=== PATIENT | male | born 1955 | race Caucasian/White ===

== ENCOUNTER 2016-07-05 01:16 | Inpatient (IN) | payer OTHER ==
--- NOTE | 2016-06-30 16:18 | History & Physical Pre-Op ---
General Information and HPI MD Statement: I have seen and personally examined MARY ALICE HOWELL and documented this H&P. The patient is a 60 year old M who presented with a patient stated chief complaint of [left sided neck pain radiating down into his shoulder and his arm on the right and the occipital and temporal regions on the left Pain is worse with extension of his neck bending towards the left shoulder]. Source of Information: patient Exam Limitations: no limitations History of Present Illness: 61-year-old right-handed gentleman with symptoms since late 2014 early 2015 as mentioned above. Things are worse with activity coughing sneezing or walking. He complains of numbness and tingling behind his left eye and cheek Allergies/Medications Allergies: Coded Allergies: No Known Allergies (06/28/16) Home Med list Atorvastatin Calcium (Lipitor) 20 MG TABLET 1 TAB PO DAILY CHOLESTEROL ( Reported) Multivitamin (Multiple Vitamins) 1 EACH TABLET 1 TAB PO DAILY SUPPLEMENT ( Reported) Tamsulosin HCl (Flomax) 0.4 MG CAP.ER.24H 1 CAP PO DAILY PROSTATE (Reported) Compliance With Home Meds: GOOD Past History Medical History Blood Transfusion Hx: No Type of Reaction: none Neurological: NONE EENT: NONE Cardiovascular: NONE Respiratory: NONE Gastrointestinal: colitis Hepatic: NONE Renal: benign prost hyperplasia Musculoskeletal: spinal stenosis Psychiatric: NONE Endocrine: NONE Blood Disorders: NONE Cancer(s): NONE 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 Cervical fusion C4 5. Past Family/Social History Psychosocial History Past Psychosocial History Unobtainable at this time Where Do You Live? Home Who Do You Live With? uncertain Services at Home None Primary Language: Finnish Smoking Status: Never Smoked ETOH Use: occasional use Illicit Drug Use: denies illicit drug use Living Will? unknown Power of Cytometry Technologist/HCP? unknown Name of POA/HCP: unknown Other Social History: Father with prostate disease mother with osteoporosis Functional Ability ADLs Independent: dressing, eating, toileting, bathing. Ambulation: independent IADLs Independent: shopping. Employment History Employment: Employed Profession/Employer: [employer]. Review of Systems Review of Systems: Neck and shoulder and arm pain as above Review of Systems Constitutional: Denies: no symptoms. EENTM: Denies: visual changes. Cardiovascular: Denies: no symptoms. Respiratory: Denies: no symptoms. GI: Reports: abdominal pain. Genitourinary: Reports: nocturia. Musculoskeletal: Reports: see HPI. Skin: Denies: no symptoms. Neurological/Psychological: Reports: headache, tingling, other (neck discomfort as described). Hematologic/Endocrine: Denies: no symptoms. Immunologic/Allergic: Denies: no symptoms. All Other Systems: Reviewed and Negative Colonoscopy Testing Status: Unknown if test ever done Comments His main symptomatology is as described above Exam & Diagnostic Data Last 24 Hrs of Vital Signs/I&O He has limitation of forward bending of his neck. He has a Spurling sign to the left. He has no axial loading side. Physical Exam: HEENT limitation of forward bending of his neck. Spurling sign to the left. No axial loading sign. Neurologic awake alert oriented. Motor strength 5 over 5 in all groups. Trace present reflexes of biceps brachioradialis and triceps. He has no increased finger flexors or evidence of myelopathy or lower extremities. He has decreased sensation C4 and C5 distribution on his left arm in a C6 distribution bilaterally Physical Exam General Appearance Alert, Oriented X3 Skin No Rashes, scars from previous surgery HEENT see above note Neck arked limitation of range of motion Lymphatic Cervical nl Cardiovascular Regular Rate Lungs Clear to Auscultation Abdomen Soft Neurological Normal Gait, Normal Speech, Strength at 5/5 X4 Ext, decreased sensation in C4 and C5 on the left and C6 bilateral Extremities No Clubbing Vascular Normal Pulses Breasts noncontributory Reproductive (MALE) Normal male genitalia Rectal deferred to primary care Last 24 Hrs of Labs/Ian: Attending CBCs Diagnostic Data ITS Data Unobtainable at this time EKG Results C primary care note CXR Results CC primary care note Other Results MRI demonstrates fusions at C4 5 and 467. Heart disc formation at C3 4. Acute kyphosis at C5 6 plus grade 1 spondylolisthesis. He has findings at C7-T1. Assessment/Plan Assessment/Plan: #1 cervical radiculopathy #2 C5 6 spondylosis #3 post anterior cervical fusion #4 benign prosthetic hypertrophy As Ranked By This Provider Problem List: 1. Cervical radiculopathy at C5 Attending MD Review Statement Attending Statement Attending MD Statement: discussed with family, reviewed images Attending Assessment/Plan: Patient requiring anterior cervical discectomy and fusion at C5 6
[~2016-07-05] VITALS: Ht 177.8 cm; Wt 92.1 kg
[~2016-07-05 01:16] MED LIST: ATORVASTATIN CA20 MG PO; FLOMAX0.4 M1 PO; MULTIVITAMIN1 TAB PO; RAPAFLO8 MG PO
--- NOTE | 2016-07-05 15:08 | Operative Report ---
Operative/Inv Procedure Report Surgery Date: 07/05/16 Name of Procedure: #1 removal of hardware C 45, C6 7 #2 anterior cervical microscopic discectomy C5 6 #3 preparation of space for fusion C5 6 Pre-Operative Diagnosis: #1 cervical radiculopathy or lateral #2 instability C5 6 #3 rule out pseudoarthrosis C4 5 Post-Operative Diagnosis: #1 cervical radiculopathy C5 6 #2 instability C5 6 Estimated Blood Loss: 50ml to 100ml Surgeon/Clinical Admissions Manager: JACLYN VALIENTE,CHRISSY Nelson (cosurgeon) CALI GODFREY MD,[facility] Anesthesia: general endotracheal tube Monitors: Neurophysiology monitoring throughout the case. Neuro alert IV Fluids: D5 normal saline Implants: Kerlink Urine Output: 100 mL Drains: One [place] Specimens: HNP C5 6 Microbiology: None Tourniquet: None Complications: None Condition: Stable Operative Indication: 60-year-old male with excruciating right leg pain in addition bilateral arm pain left worse than right in addition low back pain. Patient failed conservative measures. Patient had previous fusion at C4 5 as well as C6 7. The fusion at C6 7 was radiologically evidently fused C4 5 was a little bit more open to question Indication for surgery alternative risks and possible complications including disfigurement and paralysis were discussed at length with the patient elected to have surgery performed O guarantees given all questions answered Operative/Procedure Note Note: Patient was intubated supine and kept supine. His head was extended over a rolled sheet. His head was in a traction device of the Holter type and sustained 15 pounds of weight. The procedure was done under continuous neurophysiological monitoring provided for by neuro alert. The patient received 2 g of intravenous antibiotics and 10 mg of Decadron prior to starting the case Neck was prepped and draped in the usual sterile manner infiltrated with Xylocaine and epinephrine. Sharp dissection was carried down to the platysma which was then dissected in the direction of its fibers and sharp dissection was carried down to the anterior fascia of the cervical region which was thickened by significant scarring. Tedious dissection allowed us finally to identify the previous plates at C6 7 and from that point on removing old scar allowed us to identify both the C5 6 disc space as well as the C4 5 plate Tedious removal of the plate at C6 7 followed a relatively uncomplicated removal of plate at C4 5. Screws were all accounted for. A minimal amount of bleeding from the screw holes required use of bone wax A needle was placed in the C5 6 space and a film confirmed that we were indeed at that point after dissecting out the longus coli muscles bilaterally the Trimline self-retaining retractor was placed horizontally and vertically following which under the next the illumination and magnification provided for by the Leica microscope the annulus was incised with 11 blade the anterior osteophyte was removed with the 3 mm Kerrison disc material was removed with straight and up-biting pituitaries and micro-grasper. A intervertebral body teacher drama was then placed and widened in the posterior osteophytes were removed after opening the posterior longitudinal ligament with 1 mm Kerrison once the ligament had been widely opened and the osteophytes removed with 2 mm Kerrison attention was directed to the foramen a and they were opened with 2 mm Kerrisons more pronounced on the left than on the right once free passage of nerve root of nerve root of nerve hook and removed Dissector Were Performed the Microscope Was Then Removed and Using First Angled Curettes and Then the High-Speed Drill to Remove Anterior Osteophytic Bars and Then Using Rasps the Space at C5 6 Was Readied for Fusion and Once Preparation Was Accomplished Microscope Having Been Removed the Procedure Was Turned over to the Orthopedic Service for Fusion of This We Dictated Separately. Sponges and Count Were Correct or No Trouble Complications Inspection of the C4 5 Fusion Mass Was Accomplished and This Was Found to Be Satisfactorily Fused Findings: #1 satisfactory fusion L4 5 #2 foraminal entrapment from osteophytic over growth at C5 6 Discharge Disposition: PACU Additional Comments: Slight improvement and motor potentials which had been remarkably low prior to beginning the case by the end of the case CC: JACLYN VALIENTE,CHRISSY Nelson
[2016-07-05 16:45] VITALS: BP 182/110
--- NOTE | 2016-07-05 17:43 | NUR ---
PATIENT B/P 180/110 AT 1700. HR 88, RR 20, 97% ON 2L NC. PT C/O 6/10 PAIN OVER HIS RIGHT EAR AND A HEADACHE. NO OTHER COMPLAINTS. SURGICAL YASIR PAGED. AT 1715 YASIR GONSALEZ AWARE AND PATIENT TO BE GIVEN DIALUDID. TO RECHECK B/P IN 1/2 HR. PATIENT GIVEN DIALUDID AT 1720. B/P AT 1745 WAS 180/110. PT STILL C/O SAME PAIN. YASIR GONSALEZ LESLY IN TO ASSESS PATIENT. AWAAITING FURTHER ORDERS. WILL MONITOR.
--- NOTE | 2016-07-05 17:44 | PN- Orthopedic ---
Subjective Subjective: Post Op Note s/p removal of hardware C4-C7. ACDF C5-C6 Patient c/o a headache which is 9/10 and located on the right side of his head. He states he sometimes gets headaches but not normally this bad. Incisional neck pain is tolerable at this time. Denies n/v. Denies numbness/tingling in extremities. Denies CP/SOB. Objective Vital Signs and I&Os Vital Signs Date Time Temp Pulse Resp B/P Pulse O2 O2 Flow FiO2 Ox Delivery Rate 07/05 1745 180/110 07/05 1645 98.1 88 20 182/110 97 Nasal 2.0L Cannula Physical Exam: General: NAD, comfortable, A&Ox3 Neuro: CNII-XII grossly intact. BUE Head Of [employer]s strength 5/5. B/L plantarflexion and dorsiflexion 5/5. Neck: C collar in place. Dressing with one small spot, otherwise c/d/i. PABLO drain x1 in place with no output. Chest: CTAB, no wheezes, no rales. Heart S1S2 normal. Abdomen: soft, nontender, nondistended. Ext: No calve swelling/TTP, neurovascularly intact bilateral lower extremities Current Medications: Current Medications Sig/Rm Start time Last Medication Dose Route Stop Time Status Admin Acetaminophen 1,000 MG Q6P PRN 07/05 1800 AC N/A 1 UNIT IV Cefazolin Sodium 2 GM Q8H 07/05 2000 AC N/A 1 UNIT IV 07/06 1959 Cefazolin Sodium 2 GM Q8H 07/05 1800 DC N/A 1 UNIT IV 07/06 1759 Cefazolin Sodium 2,000 MG ONCE 07/05 0000 DC IV 07/05 2359 Dextrose/Sodium 1,000 ML .[id number] 07/05 1715 AC 07/05 Chloride IV 1753 Diazepam 5 MG Q8P PRN 07/05 171 AC PO Docusate Sodium 100 MG DAILY NEEDED PRN 07/05 171 AC PO Hydromorphone HCl 0.5 MG Q3P PRN 07/05 1715 AC 07/05 IV 1722 Ondansetron HCl 4 MG Q6P PRN 07/05 1715 AC IV Oxycodone HCl 5 MG Q4P PRN 07/05 1800 AC PO Oxycodone HCl 10 MG Q4P PRN 07/05 1800 AC PO Oxycodone/ 1 TAB Q4P PRN 07/05 1715 DC Acetaminophen PO Oxycodone/ 2 TAB Q4P PRN 07/05 1715 DC Acetaminophen PO Polyethylene Glycol 17 GM DAILY NEEDED PRN 07/05 1715 AC PO Assessment/Plan Assessment/Plan 60yo M POD#0 s/p removal of hardware C4-C7. ACDF C5-C6. Hypertensive. - Start IV Ofirmev - Change percocet to roxicodone - PRN zofran - PRN valium - IVF - Monitor BP - I/O's - C Collar at all times - PABLO drain to bulb suction - OOB when pain improved with assist first time - Keep dressing in place - IV Ancef while drain in place Core Measures/Miscellaneous Venous Thromboembolism VTE Risk Factors: Age > 40, Surgery VTE Contraindications: Active Bleeding (surgical contraindication) VTE Diagnosis: No Beta Jose Is Beta Jose a Home Med? No Antibiotics Is Patient on Antibiotics? Yes If Yes: prophylaxis
[2016-07-05 17:45] VITALS: BP 180/110
--- NOTE | 2016-07-05 17:54 | NUR ---
WALLACE COOLEY AT BEDSIDE TO ASSES PATIENT. PER YASIR, HANG IV TYLENOL AND HE WILL ADJUST PAIN REGIMEN. NO FURTHER ORDERS FOR B/P AT THIS TIME. WILL CONTINUE TO MONITOR.
--- NOTE | 2016-07-05 18:03 | Admission Core Measures ---
Admission Meds I reviewed the following Meds: Current Medications Sig/Rm Start time Last Medication Dose Stop Time Status Admin Atorvastatin Calcium 20 MG DAILY 07/06 1000 UNVr (Lipitor) Cefazolin Sodium 2 GM Q8H 07/06 1999 AC (Kefzol) 07/06 1958 N/A 1 UNIT (No Carrier) Diazepam 5 MG Q8P PRN 07/05 171 AC (Valium) Docusate Sodium 100 MG DAILY NEEDED PRN 07/05 171 AC (Colace) Ondansetron HCl 4 MG Q6P PRN 07/05 171 AC (Zofran) Oxycodone HCl 5 MG Q4P PRN 07/05 1800 AC (Roxicodone) Oxycodone HCl 10 MG Q4P PRN 07/05 1800 AC (Roxicodone) Polyethylene Glycol 17 GM DAILY NEEDED PRN 07/05 171 AC (Miralax) Tamsulosin HCl 0.4 MG DAILY 07/06 1000 UNVr (Flomax) Acute Coronary Syndrome Inclusion Criteria ACS Diagnosis No Inpatient Core Measures LDL Reminder: If No, please order W/I first 24hr of stay Congestive Heart Failure Inclusion Criteria CHF Diagnosis No Cerebrovascular accident Inclusion Criteria CVA/TIA Diagnosis No Inpatient Core Measures Bedside Swallow Eval Reminder: If BSE failed, place ST order Antithrombotic Reminder: Order Antithrombotic Medication by end of day 2 Antithrombotic Reminder: Document Reason Antithrombotic Not ordered by end of day 2 AFIB/Flutter Reminder: If Present, add to problem list AFIB/Flutter Reminder: Order Anticoag Medication for pts with AFIB/Flutter Atherosclerosis Reminder: If Present, add to problem list LDL Reminder: If No, please order W/I first 24hr of stay PT Order Reminder: If No, please order Venous thromboembolism Inpatient Core Measures VTE Risk Factors: Age > 40, Surgery No [facility] VTE prophylaxis d/t No contraindications No VTE Pharm Prophylaxis d/t No contraindications Inclusion Criteria - Per Current guidelines, there needs to be overlap - treatment for the first 5 days of Warfarin therapy. - Parenteral Anticoagulation (IV or SC) needs to be - given along with Warfarin therapy. VTE Diagnosis No VTE Type NONE VTE Confirmed by (Test) NONE Problem List As ranked by this Provider includes Assessment & Plan 1. Cervical radiculopathy at C5 HOME MEDS Home Med List Atorvastatin Calcium (Lipitor) 20 MG TABLET 1 TAB PO DAILY CHOLESTEROL ( Reported) Multivitamin (Multiple Vitamins) 1 EACH TABLET 1 TAB PO DAILY SUPPLEMENT ( Reported) Tamsulosin HCl (Flomax) 0.4 MG CAP.ER.24H 1 CAP PO DAILY PROSTATE (Reported)
[2016-07-05 18:45] VITALS: BP 180/110
--- NOTE | 2016-07-05 19:00 | NUR ---
RECHECKED B/P AT 1845 AND STILL 180/110, PULSE 94, THIS RN CALLED SURGICAL PA, PER SURGICAL PA IGNACIO TELEPHONE ORDER, GIVE 25 MG METOPROLOL PO AND 1 MG ATIVAN IV, TELEPHONE ORDER READ BACK AND VERIFIED BY THIS RN, FAXED TO PHARMACY, WILL CONTINUE TO MONITOR
[2016-07-05 20:45] VITALS: BP 150/94
--- NOTE | 2016-07-05 20:50 | NUR ---
AT THIS TIME, PT CALLED THIS RN INTO ROOM AND COMPLAINED OF CHEST PAIN. THIS RN PAGED SURGICAL PA, SURG PA WAS IN SURGERY PER RESPONDER TO MY PAGE. THIS RN WAS TOLD TO CALL FOR A MEDICAL CONSULT FROM THE [facility] AND HAVE HIM COME SEE PT. THIS RN CALLED [facility] AND WAS TOLD "CALL THE HOSPITALIST". THIS RN PAGED HOSPITALIST PRINCE AND TOLD MD ABOUT PTS SITUATION. HOSPITALIST HESITANT TO COME UP DUE TO NOT HAVING A MEDICAL CONSULT IN ON THIS PATIENT FROM SURGICAL TEAM. NURSING LOBSTER CATCHER AT THIS RN'S SIDE AND TOLD THIS RN TO TELL HOSPITATLIST THAT THE ONLY OTHER OPTION WAS TO CALL A RAPID TO HAVE A DOCTOR ASSESS THE PATIENT'S ACTIVE CHEST PAIN. HOSPITATLIST SAID "OK I'LL COME UP". HOSPITALIST STATED "THIS IS UNFAIR". AT 2104, [facility] WAS UP TO ASSESS PT. AT 2129, EKG ORDER PLACED AND ACKNOWLEDGED WELL LAB WORK. EKG & LAB WORK PERFORMED AND SENT TO LAB. AT 2214, SURGICAL PA IN TO SEE PT. GI COCKTAIL ORDERED & GIVEN TO PT. NO NEW ORDERS. WILL CONTINUE TO MONITOR.
--- NOTE | 2016-07-05 21:26 | Cons- Medical ---
TANIA VALIENTE,BANNER 07/05/162125: General Information and HPI Consulting Request Date of Consult: 06/16/16 Requested By: CAMERON MENDOZA Reason for Consult: chest pain History of Present Illness: 60-year-old man medical history dyslipidemia, BPH, testicular varicocele, C5-6 SPONDYLOSIS, cervical radiculopathy, Radon exposure 3 years ago, was admitted for left-sided neck pain rating down into the shoulder and arm. Taken to the OR for removal of hardware C4-C7; anterior cervical microscopic discectomy C5-C6 with fusion, POD#0. Was complaining of chest discomfort to the nurse. The nurse has called [facility] directly to place a "emergent consult". The patient is awake alert oriented mentating well. Describes chest discomfort is central in location, sharp nonradiating occurs with inspiration resolves after seconds. He has never experienced chest pain in his life. He is a nonsmoker, no family history of early myocardial infarction or sudden . He himself carries a personal history of hypercholesterolemia. He has no other comorbid conditions. He denies fever or chills, diaphoresis, shortness of breath, nausea vomiting diarrhea, anxiety, feeling of impending doom, or any other symptoms after review in detail. Allergies/Medications Allergies: Coded Allergies: No Known Allergies (06/28/16) Home Med List: Atorvastatin Calcium (Lipitor) 20 MG TABLET 1 TAB PO DAILY CHOLESTEROL ( Reported) Multivitamin (Multiple Vitamins) 1 EACH TABLET 1 TAB PO DAILY SUPPLEMENT ( Reported) Tamsulosin HCl (Flomax) 0.4 MG CAP.ER.24H 1 CAP PO DAILY PROSTATE (Reported) Current Medications: Current Medications Sig/Rm Start time Last Medication Dose Route Stop Time Status Admin Acetaminophen 1,000 MG Q6P PRN 07/05 1800 AC 07/05 N/A 1 UNIT IV 1759 Atorvastatin Calcium 20 MG 1700 07/06 1700 AC PO Cefazolin Sodium 2 GM Q8H 07/05 2000 AC 07/05 N/A 1 UNIT IV 07/06 195 194 Cefazolin Sodium 2 GM Q8H 07/05 1800 DC N/A 1 UNIT IV 07/06 1759 Cefazolin Sodium 2,000 MG ONCE 07/05 0000 DC IV 07/05 2359 Dextrose/Sodium 1,000 ML .[id number] 07/05 1715 AC 07/05 Chloride IV 1753 Diazepam 5 MG Q8P PRN 07/05 1715 AC PO Docusate Sodium 100 MG DAILY NEEDED PRN 07/05 1715 AC PO Fentanyl Citrate 250 MCG .STK-MED ONE 07/05 1040 DC IM 07/05 1041 Hydromorphone HCl 0.5 MG Q3P PRN 07/05 1715 AC 07/05 IV 1722 Lorazepam 1 MG ONCE ONE 07/05 1915 DC 07/05 IV 07/05 191 1920 Metoprolol Tartrate 25 MG ONCE ONE 07/05 1915 DC 07/05 PO 07/05 191 1920 Midazolam HCl 5 MG .STK-MED ONE 07/05 1040 DC IM 07/05 1041 Ondansetron HCl 4 MG Q6P PRN 07/05 1715 AC IV Oxycodone HCl 5 MG Q4P PRN 07/05 1800 AC PO Oxycodone HCl 10 MG Q4P PRN 07/05 1800 AC 07/05 PO 1907 Oxycodone/ 1 TAB Q4P PRN 07/05 1715 DC Acetaminophen PO Oxycodone/ 2 TAB Q4P PRN 07/05 1715 DC Acetaminophen PO Polyethylene Glycol 17 GM DAILY NEEDED PRN 07/05 1715 AC PO Remifentanil 5 MG .STK-MED ONE 07/05 1335 DC IV 07/05 1336 Remifentanil 5 MG .STK-MED ONE 07/05 1040 DC IV 07/05 1041 Tamsulosin HCl 0.4 MG DAILY 07/06 1000 AC PO Review of Systems Review of Systems Constitutional: Denies: see HPI. Respiratory: Reports: see HPI. 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 Cervical fusion C4 5. Psychosocial History Where Do You Live? Home Who Do You Live With? uncertain Services at Home: None Primary Language: Irish Smoking Status: Never Smoked ETOH Use: occasional use Illicit Drug Use: denies illicit drug use Living Will? 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 unknown Name of POA/HCP: unknown Other Social History: Father with prostate disease mother with osteoporosis Functional Ability ADLs Independent: dressing, eating, toileting, bathing. Ambulation: independent IADLs Independent: shopping. Employment History Employment: Employed Profession/Employer: [employer]. Exam & Diagnostic Data Last 24 Hrs of Vital Signs/I&O Vital Signs Date Time Temp Pulse Resp B/P Pulse O2 O2 Flow FiO2 Ox Delivery Rate 07/05 2044 98.5 83 18 150/94 95 Nasal 2.0L Cannula 07/05 1920 94 180/110 07/05 1845 98.3 94 20 180/110 96 Nasal 2.0L Cannula 07/05 1745 180/110 07/05 1645 Nasal 2.0L Cannula 07/05 164 98.1 88 20 182/110 97 Nasal 2.0L Cannula Physical Exam General Appearance: no apparent distress, alert, awake, comfortable Head: atraumatic Eyes: Bilateral: PERRL, EOMI. Ears, Nose, Throat: normal pharynx Neck: neck collar/brace in place Respiratory: normal breath sounds, mild tenderness elicited with palpation Cardiovascular: regular rate/rhythm Peripheral Pulses: 2+ radial (R), 2+ radial (L) Gastrointestinal: normal bowel sounds, soft, non-tender Extremities: no edema Cranial Nerves: normal speech Skin: intact, normal color, warm/dry Last 24 Hrs of Labs/Ian: none Assessment/Plan Assessment/Plan 60-year-old man medical history dyslipidemia, BPH, testicular varicocele, C5-6 SPONDYLOSIS, cervical radiculopathy, Radon exposure 3 years ago, was admitted for left-sided neck pain rating down into the shoulder and arm. Taken to the OR for removal of hardware C4-C7; anterior cervical microscopic discectomy C5-C6 with fusion, POD#0. Now c/o of central chest discomfor that is atypical of CP of cardiac etiology. Suspect this is either transmission of pain from cervical radiculopathy or MSK pain such as costochondritis or muscle spasm given that it is pleuritic, reproducible, sharp in character, last seconds, non-radiating, non -exertional, no dyspnea, no hypotension, no hypoxia, and no other risk factors for coronary disease. Recently had a pre-op cardiology clearance and stress testing (per patient) that was all 'normal'. ?PE - very low suspicion - Problems - Chest pain: DDX: MSK pain, Radiculopathy, Pericarditis, PE, ACS Post Anterior cervical microscopic discectomy C5-C6 with fusion - Recommendations - Check CBC, CMP, INR, Troponin, EKG, Lipid panel, CXR Consider CTA Chest pending labs/renal function Treat with tylenol, ibuprofen, consider baclofen or cyclobenzaprine if pain persists Cont Incentive spirometry Consult Acknowledgment - Thank you for your consult request. PRINCECORTEZCHIO 07/06/16 0602: Assessment/Plan Consult Acknowledgment - Thank you for your consult request. Attending MD Review Statement Attending Statement Attending MD Statement: examined this patient, discuss w/resident/PA/REHABILITATION CASE COORDINATOR, agreed w/resident/PA/REHABILITATION CASE COORDINATOR, reviewed EMR data (avail), reviewed images, amended to note Attending Assessment/Plan: Patient was admitted for same-day surgery, complaining of chest pain post op. Chest discomfort, central, lasting for a few seconds, nonradiating, nonpleuritic , nonreproducible. No significant cardiac history. Low suspicion for PE, likely musculoskeletal, agree with PPI and GI cocktail, Trending troponin and EKG.
--- NOTE | 2016-07-05 21:41 | NUR ---
AROUND 2049 PT C/O CHEST PAIN, VSS, THIS RN CALLED SURGICAL PA, SURGICAL PA TOLD THIS RN TO CALL MOD FOR MEDICAL CONSULT, THIS RN PAGED MOD, MOD UP TO PT BEDSIDE TO ASSESS PT, ORDERS FOR STAT BLOOD AND EKG IN, WILL CONT TO MONITOR
[2016-07-05 22:15] LABS: ABSOLUTE BASOPHIL COUNT 0 /CUMM (0.0-0.2); ABSOLUTE EOSINOPHIL COUNT 0 /CUMM (0.0-0.7); ABSOLUTE GRANULOCYTE CT 9.5 /CUMM (1.4-6.5); ABSOLUTE LYMPH COUNT 0.4 /CUMM (1.2-3.4); ABSOLUTE MONOCYTE COUNT 0.1 /CUMM (0.10-0.60); BASOPHIL % 0 % (0.0-2.0); EOSINOPHIL % 0 % (0-5); HEMATOCRIT 46.9 % (42-52); MEAN CORPUSCULAR HGB 30.7 PG (27.0-31.0); MEAN CORPUSCULAR HGB CONC 33.3 G/DL (33.0-37.0); MEAN CORPUSCULAR VOLUME 92.1 FL (80.0-94.0); MEAN PLATELET VOLUME 8.1 FL (7.4-10.4); PLATELET COUNT 178 /CUMM (130-400); RBC DISTRIBUTION WIDTH 13.4 % (11.5-14.5); RED BLOOD CELL CT 5.09 /CUMM (4.70-6.10); WHITE BLOOD CELL COUNT 10.1 /CUMM (4.8-10.8)
[2016-07-05 22:25] LABS: GRANULOCYTE % 94.6 % (42.2-75.2)
[2016-07-05 22:28] LABS: PT 12.3 SEC (9.4-12.5)
--- NOTE | 2016-07-05 22:30 | RADIOLOGY REPORT ---
EXAMINATION: XR PORTABLE CHEST CLINICAL INFORMATION: Pleuritic chest pain. Cough. COMPARISON: Chest x-rays most recent prior dated 06/20/2016 TECHNIQUE: Portable AP view of the chest was obtained. FINDINGS: Cardia mediastinal silhouette is within normal limits. Low lung volumes. Lungs are clear. Bony thorax is intact. IMPRESSION: No acute pulmonary disease.
[2016-07-05 22:32] VITALS: BP 158/78
--- NOTE | 2016-07-05 22:57 | Event Note ---
Event Note Event Note: I was paged by the nurse due to patient being hypertensive while I was in the operating room. on review of his records he has no history of hypertension however he was moderately hypertensive throughout his surgery and his immediate postoperative period. Blood pressure is 180/110, heart rate in the 90s. Dilaudid did not initially help his blood pressure. I have asked the nurse to give him 25 mg of metoprolol by mouth and 1 mg of Ativan IV. Was paged again by the nurse to evaluate patient for chest pain, I was still in the operating room and asked that she call the hospitalist for consultation. I would evaluate the patient is a resident at the operating room. Patient evaluated by myself, his blood pressure improved to 150/80 however he started having chest pain/epigastric pain. He states that he occasionally gets symptoms while at home. He states it started while he was eating dinner as a pressure and burning/bubbling sensation in the epigastric region that is exacerbated by swallowing and on examination has mild reproduction of symptoms in the epigastric region. EKG was ordered which I reviewed, normal sinus rhythm 72 bpm, Q waves noted inferiorly, no ST or T-wave changes, this is unchanged from his preop EKG which I reviewed. ? reflux/gastritis. Patient was given a GI cocktail and Dr. Dudley is at bedside.
[2016-07-06 03:03] VITALS: BP 144/96
--- NOTE | 2016-07-06 05:38 | NUR ---
late entry pt began c/o pain in sternal area. VSS. Surgical PA paged. IV protonix ordered. Pt reported relief. Will continue to monitor.
[2016-07-06 07:00] VITALS: BP 150/88; BP 168/108
--- NOTE | 2016-07-06 07:10 | PN- Orthopedic ---
Subjective Subjective: The patient was seen this morning postoperatively day #1. He reports still having chest pain which she describes as a tightness and heaviness in his substernal region. His pain has been present since last night and has waxed and waned until now without ever truly going away. He has no other complaints and denies any radiation of pain, nausea or chills. He denies any numbness, tingling, or weakness in his extremities. Objective Vital Signs and I&Os Vital Signs Date Time Temp Pulse Resp B/P Pulse O2 O2 Flow FiO2 Ox Delivery Rate 07/06 0303 98.7 71 20 144/96 96 Nasal Cannula 07/05 2232 98.8 77 20 158/78 96 Nasal Cannula 07/05 2045 98.5 83 18 150/94 95 Nasal 2.0L Cannula 07/05 1920 94 180/110 07/05 1845 98.3 94 20 180/110 96 Nasal 2.0L Cannula 07/05 1745 180/110 07/05 1645 Nasal 2.0L Cannula 07/05 1645 98.1 88 20 182/110 97 Nasal 2.0L Cannula Intake & Output 07/06 0800 07/06 0000 07/05 1600 07/05 0800 07/05 0000 07/04 1600 Intake Total 770 1400 Output Total 1000 750 Balance -230 650 Intake, IV 650 600 Intake, Oral 120 800 Output, 0 0 Drainage Output, Urine 1000 750 Patient 203 lb Weight Physical Exam: Gen.: Alert and complaining of chest pain Skin: Warm and dry Neck: In cervical collar, surgical incision is clean, dry, and intact. There is no gross hematoma or significant edema. There is a PABLO 1 holding suction with scant drainage in the bulb. Cardiac: S1-S2 regular Pulmonary: Bilateral breath sounds are equal and decreased at bases Extremities: Patient moves all 4 extremities with equal strength. Gross motor and sensory are intact. Bilateral lower extremities are warm without calf tenderness or significant edema. Neuro: Patient is alert and oriented with nonfocal exam. Cranial nerves II through XII are grossly intact Assessment/Plan Assessment/Plan Assessment: This is a 60-year-old male status post anterior cervical fusion C5 through C6. Postoperatively from an orthopedic standpoint the patient is progressing as expected, his pain is under adequate control, and he has a nonfocal neuro exam. The patient is still experiencing chest pain which appears to be possibly cardiac in nature. The case was discussed with the MOD who recommended a repeat EKG and troponin stat and will see the patient this morning. Plan: Follow-up EKG and morning laboratory studies Continue current pain regiment Out of bed and ambulate GI and DVT prophylaxis Keep PABLO to self suction Incentive spirometry Follow-up medical consultation recommendations Core Measures/Miscellaneous Venous Thromboembolism VTE Risk Factors: Age > 40, Surgery VTE Contraindications: Active Bleeding (surgical contraindication) VTE Diagnosis: No VTE Type: NONE VTE Confirmed by (Test): NONE Beta Jose Is Beta Jose a Home Med? No Antibiotics Is Patient on Antibiotics? No
--- NOTE | 2016-07-06 07:12 | PN- Medicine Consult ---
RODNEY BROTHERS 07/06/16 0712: Assessment/Plan Assessment/Plan Assessment: 58-year-old gentleman with a PMH of hyperlipidemia, BPH, testicular varicoceles, C5-6 spondylosis, cervical radiculopathy, radon exposure 3 years ago was admitted for left-sided radicular neck pain that radiated down towards his arm. Underwent removal of hardware at C4-C7, anterior cervical microscopic discectomy C5-C6 with fusion. Patient is a current every day smoker, no family history of MIs at an early age. Currently POD #1 Postprocedure complicated by intermittent substernal chest pain, no relief with IV PPI and GI cocktail. EKG 2: No evidence of ST-T changes Troponin 2: Negative Problem list: 1. Angina: DDX esophageal spasm vs musculoskeletal discomfort vs referred pain 2. Anterior cervical microscopic discectomy C5-C6 with fusion 3. Hypertension Plan: Recommendations: * Despite negative workup thus far with serial EKG and troponin would recommend cardiology input * Chest discomfort may be secondary to referred pain in the setting of recent manipulation of cervical region. Consider trial of muscle relaxer * Symptoms do not appear to be secondary to GERD. Additionally, he did not show any improvement with administration of GI cocktail and IV PPI. Altternatively, trial with H2 carlos (ranitidine) * If blood pressure remains elevated, repeat troponins and EKG remain unchanged, consider trial of calcium channel carlos (amlodipine). CCB can also provide symptomatic relief if his discomfort were to be secondary to esophageal spasms Problem List: 1. Cervical radiculopathy at C5 2. Atypical chest pain 3. HTN (hypertension) Subjective Subjective: Interval history: This morning the patient reports intermittent episodes of substernal chest discomfort that he describes as a pressure sensation, nonradiating, lasting a few seconds to minutes. He denies any correlation with swallowing, worsening with deep inspiration. Patient denies any palpitations, shortness of breath, nausea, abdominal pain, fevers or chills at this time. Review of Systems Constitutional: Reports: see HPI. Objective Last 24 Hrs of Vital Signs/I&O Vital Signs Date Time Temp Pulse Resp B/P Pulse O2 O2 Flow FiO2 Ox Delivery Rate 07/06 1054 98.7 78 18 132/86 94 Room Air 07/06 0953 18 95 Room Air 07/06 0800 97 Nasal 2.0L Cannula 07/06 0745 97.4 64 18 150/96 97 Nasal 2.0L Cannula 07/06 0700 150/88 07/06 0700 98.6 68 20 168/108 96 Nasal Cannula 07/06 0303 98.7 71 20 144/96 96 Nasal Cannula 07/05 2232 98.8 77 20 158/78 96 Nasal Cannula 07/05 2045 98.5 83 18 150/94 95 Nasal 2.0L Cannula 07/05 1920 94 180/110 07/05 1845 98.3 94 20 180/110 96 Nasal 2.0L Cannula 07/05 1745 180/110 07/05 1645 Nasal 2.0L Cannula 07/05 164 98.1 88 20 182/110 97 Nasal 2.0L Cannula Intake & Output 07/06 1600 07/06 0800 07/06 0000 Intake Total 770 1400 Output Total 1520 1000 750 Balance -1520 -230 650 Intake, IV 650 600 Intake, Oral 120 800 Output, 0 0 Drainage Output, Urine 1520 1000 750 Patient 203 lb Weight Physical Exam General Appearance: alert, comfortable, Intermittent episodes of discomfort from his chest Head: normal appearance Ears, Nose, Throat: hearing grossly normal Neck: There is a clean dry bandage on the anterior aspect of his neck, Neck collar in place at this time Cardiovascular: regular rate/rhythm, normal peripheral pulses Respiratory: chest non-tender, no respiratory distress, lungs clear Abdomen: normal bowel sounds, soft, non-tender Extremities: no edema Current Medications: Current Medications Sig/Rm Start time Last Medication Dose Route Stop Time Status Admin Acetaminophen 325 MG .STK-MED ONE 07/05 2359 DC PO 07/06 0000 Acetaminophen 1,000 MG Q6P PRN 07/05 1800 AC 07/05 N/A 1 UNIT IV 1759 Atorvastatin Calcium 20 MG 1700 07/06 1700 AC PO Cefazolin Sodium 2 GM Q8H 07/05 2000 DC 07/06 N/A 1 UNIT IV 07/06 1959 1145 Cefazolin Sodium 2 GM Q8H 07/05 1800 DC N/A 1 UNIT IV 07/06 1759 Cefazolin Sodium 2,000 MG ONCE 07/05 0000 DC IV 07/05 2359 Dextrose/Sodium 1,000 ML .[id number] 07/05 1715 DC 07/06 Chloride IV 0202 Diazepam 5 MG Q8P PRN 07/05 171 AC PO Docusate Sodium 100 MG DAILY NEEDED PRN 07/05 171 AC PO Hydromorphone HCl 0.5 MG Q3P PRN 07/05 171 AC 07/05 IV 172 Lorazepam 1 MG ONCE ONE 07/05 1914 DC 07/05 IV 07/05 191 1920 Metoprolol Tartrate 25 MG ONCE ONE 07/05 191 DC 07/05 PO 07/05 191 192 Ondansetron HCl 4 MG Q6P PRN 07/05 171 AC IV Oxycodone HCl 5 MG Q4P PRN 07/05 1800 AC PO Oxycodone HCl 10 MG Q4P PRN 07/05 1800 AC 07/06 PO 0202 Oxycodone/ 1 TAB Q4P PRN 07/05 171 DC Acetaminophen PO Oxycodone/ 2 TAB Q4P PRN 07/05 171 DC Acetaminophen PO Pantoprazole Sodium 40 MG ONCE ONE 07/06 0330 DC 07/06 IV 07/06 033 0341 Polyethylene Glycol 17 GM DAILY NEEDED PRN 07/05 1714 AC PO Remifentanil 5 MG .STK-MED ONE 07/05 1335 DC IV 07/05 1336 Tamsulosin HCl 0.4 MG DAILY 07/06 1000 AC PO Results Last 24 Hrs Lab/Ian Results: Laboratory Tests 07/06/16 0714: Anion Gap 6, Estimated GFR > 60, BUN/Creatinine Ratio 17.5, Troponin I < 0.01, CBC w Diff NO MAN DIFF REQ, RBC 5.00, MCV 90.9, MCH 31.2 H, RDW 13.5, MPV 7.8, Gran % 90.8 H, Lymphocytes % 5.2 L, Monocytes % 3.9, Eosinophils % 0, Basophils % 0.1, Absolute Granulocytes 11.8 H, Absolute Lymphocytes 0.7 L, Absolute Monocytes 0.5, Absolute Eosinophils 0, Absolute Basophils 0, PUBS MCHC 34.3 07/05/16 2200: Anion Gap 9, Estimated GFR > 60, BUN/Creatinine Ratio 21.4, Hemoglobin A1c 5.3, Total Bilirubin 0.5, Direct Bilirubin 0.1, AST 29, ALT 43, Alkaline Phosphatase 45, Troponin I < 0.01, Total Protein 6.5, Albumin 3.8, Triglycerides 52, Cholesterol 163, LDL Cholesterol, Calc 91, HDL Cholesterol 62 H, Cholesterol/ HDL Ratio 3, PT 12.3, INR 1.17, CBC w Diff NO MAN DIFF REQ, RBC 5.09, MCV 92.1, MCH 30.7, RDW 13.4, MPV 8.1, Gran % 94.6 H, Lymphocytes % 4.5 L, Monocytes % 0.9 L, Eosinophils % 0, Basophils % 0 L, Absolute Granulocytes 9.5 H, Absolute Lymphocytes 0.4 L, Absolute Monocytes 0.1 L, Absolute Eosinophils 0, Absolute Basophils 0, PUBS MCHC 33.3 Microbiology 07/05 1320 URINE OR: Urine Culture - RES DEON VALIENTE,SANDRA 07/06/16 1418: Attending MD Review Statement Attending Sign Off Attending Cosign Statement: I have: examined this patient, reviewed [employer] EMR data, personally reviewd images, 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 Other Findings: 60-year-old male past medical history of hyperlipidemia, tobacco use and BPH was here status post hardware removal of cervical spine. Overnight developed hypertension and chest pain prompting a medicine consult and EKG and troponin and chest x-ray have been negative thus far. This is all likely musculoskeletal related to the actual surgery and the mechanical issues associated with it however it may be prudent to consider a cardiology consult to see him to risk stratify him for an outpatient workup. He doesn't have known hypertension and his pressure is better now. Overnight was very elevated. Will defer to neurosurgery. As stated above his EKG and troponins thus far have all been negative.
[2016-07-06 07:26] LABS: ABSOLUTE BASOPHIL COUNT 0 /CUMM (0.0-0.2); ABSOLUTE EOSINOPHIL COUNT 0 /CUMM (0.0-0.7); ABSOLUTE GRANULOCYTE CT 11.8 /CUMM (1.4-6.5); ABSOLUTE LYMPH COUNT 0.7 /CUMM (1.2-3.4); ABSOLUTE MONOCYTE COUNT 0.5 /CUMM (0.10-0.60); BASOPHIL % 0.1 % (0.0-2.0); EOSINOPHIL % 0 % (0-5); HEMATOCRIT 45.5 % (42-52); MEAN CORPUSCULAR HGB 31.2 PG (27.0-31.0); MEAN CORPUSCULAR HGB CONC 34.3 G/DL (33.0-37.0); MEAN CORPUSCULAR VOLUME 90.9 FL (80.0-94.0); MEAN PLATELET VOLUME 7.8 FL (7.4-10.4); RBC DISTRIBUTION WIDTH 13.5 % (11.5-14.5)
[2016-07-06 07:45] VITALS: BP 150/96
--- NOTE | 2016-07-06 07:45 | NUR ---
NURSING NOTE: ASSUMED CARE OF PATIENT AT THIS TIME. PER NIGHT JAYANT COOLEY SAW PT AT 0700AM. PT STILL COMPLAINING OF INTERMITENT DULL CHEST PAIN; STAT LABS DONE BY [facility], EKG DONE BY [facility]; EKG SHOWN TO MD SIERRA (MEDICAL CONSULT). BP 150/96 AT THIS TIME, PA AWARE. IVF DC'D. NO OTHER ORDERS AT THIS TIME, PT INSTRUCTED TO CALL FOR ASSISTANCE. REPORTS 3/10 CHEST PAIN, 0/10 NECK PAIN; MEDS OFFERED, PT DECLINED AT THIS TIME. CONTINUE TO MONITOR.
[2016-07-06 07:56] LABS: GRANULOCYTE % 90.8 % (42.2-75.2); PLATELET COUNT 182 /CUMM (130-400)
--- NOTE | 2016-07-06 08:32 | RADIOLOGY REPORT ---
EXAMINATION: XR CERVICAL SPINE CLINICAL INFORMATION: Removal of hardware. Cervical spine fusion C5-C6. COMPARISON: 02/05/2014 TECHNIQUE: 4 intraoperative fluoroscopic images of the cervical spine, 2 views. Total fluoroscopic time 21.7 seconds. FINDINGS: Initial image demonstrates anterior fusion hardware at C4-C5 and C6-C7. The existing hardware was removed and anterior fusion hardware at C5-C6 with an intervertebral disc spacer is then placed. Endotracheal tube and an enteric tube noted. IMPRESSION: Fluoroscopic guidance for hardware removal and anterior fusion at C5-C6.
--- NOTE | 2016-07-06 09:34 | PN- Neurosurgical ---
Surgical Brief Attending Note Brief Attending Note: Postoperative day #1 He did have an episode of hypotension yesterday but his vital signs now are stable He has completely resolved both his neck pain and his facial pain Good strength and sensation in both arms Essentially no drainage through the PABLO drain Is complaining of Chest pain there is a matter of concern I suppose the possibilities as this is due to direct pressure during the surgery itself. Of course cardiac workup as an process was discharged will depend on medicines input Discussed with patient's and with PA
[2016-07-06 10:54] VITALS: BP 132/86
[2016-07-06] MEDS ORDERED: DOCUSATE SODIU100 M3 PO (12:27)
[2016-07-06] MEDS ORDERED: PERCOCET 5-3251 EACH PO (12:27)
--- NOTE | 2016-07-06 12:39 | Patient Discharge Instructions ---
Discharge Instructions General Discharge Information You were seen/treated for: cervical radiculopathy, instability C5 6 rule out pseudoarthrosis C4 5 You had these procedures: Surgery Date: 07/05/16 Name of Procedure: #1 removal of hardware C4/5, C6/7 #2 anterior cervical microscopic discectomy C5/6 #3 preparation of space for fusion C5/6 #4 fusion C5/6 Watch for these problems: fever>101.3, increased pain, redness/swelling/drainage Other wound care: ok to change outer guaze dressing daily. leave white steri strips in place. Special Instructions: ok to remove collar only for sleeping Diet Continue normal diet: Yes Recommended Diet: Regular Activity Full Activity/No Limits: No Activity Self Limited: Yes Pounds, do NOT lift more than: 10 Acute Coronary Syndrome Inclusion Criteria At DC or during hospital stay patient has or had the following: ACS DIAGNOSIS No Discharge Core Measures Meds if any: Prescribed or Continued at Discharge Meds if any: NOT Prescribed or Continued at Discharge Congestive Heart Failure Inclusion Criteria At DC or during hospital stay patient has or had the following: CHF DIAGNOSIS No Discharge Core Measures Meds if any: Prescribed or Continued at Discharge Meds if any: NOT Prescribed or Continued at Discharge Cerebrovascular accident Inclusion Criteria At DC or during hospital stay patient has or had the following: CVA/TIA Diagnosis No Discharge Core Measures Meds if any: Prescribed or Continued at Discharge Meds if any: NOT Prescribed or Continued at Discharge Venous thromboembolism Inclusion Criteria VTE Diagnosis No VTE Type NONE VTE Confirmed by (Test) NONE Discharge Core Measures - Per Current guidelines, there needs to be overlap - treatment for the first 5 days of Warfarin therapy. - If discharged on Warfarin prior to 5 days of - overlap therapy, the patient will need to be - assessed for post discharge needs including - *Post discharge parental anticoagulation - *Warfarin and/or parental anticoagulation education - *Follow up date to check INR post discharge At least 5 days overlap therapy as Inpatient No Meds if any: Prescribed or Continued at Discharge Note: Overlap Therapy is Warfarin and Anticoagulant Meds if any: NOT Prescribed or Continued at Discharge
--- NOTE | 2016-07-06 12:48 | Surg Short-stay <48hrs Dis Sum ---
Visit Information Visit Dates Admission Date: 07/05/16 Discharge Date: 07/06/16 Surgical Short Stay DC Summary Admission Diagnosis: Pre-Operative Diagnosis: #1 cervical radiculopathy C5/6 #2 instability C5/6 #3 rule out pseudoarthrosis C4/5 Post-Operative Diagnosis: #1 cervical radiculopathy C5/6 #2 instability C5/6 Final Diagnosis: cervical radiculopathy s/p acdf C5/6 GERD-related symptoms Procedure(s): Surgery Date: 07/05/16 Name of Procedure: #1 removal of hardware C4/5, C6/7 #2 anterior cervical microscopic discectomy C5/6 #3 preparation of space for fusion C5/6 #4 fusion of C5/6 Summary/Significant Findings: Electively scheduled acdf C5-6 by and on 07/05/16, which was uneventful. The patient reported epigastric discomfort and "chest pain" the night following surgery, which seemed to improve with reflux medications. An ekg and troponins were negative for cardiac related etiology, and he was evaluated by the medical team as well. His PABLO drain was removed on post-op day#1, and discharge to home is anticipated for 07/06/16. Condition at Discharge: stable Discharge Disposition: home or self care Discharge instructions provided to patient/family: Yes Post discharge follow-up plan: call for follow up appointments to see and pre-printed instructions given to patient prescription for percocet given to patient
[2016-07-06] MEDS ORDERED: TUMS200 MG PO (12:49)
--- NOTE | 2016-07-06 13:54 | NUR ---
NURSING NOTE: PT CLEARED FOR DC PER Gurpreet COOLEY. [facility] SUPPLIES
--- NOTE | 2016-07-10 21:01 | Operative Report ---
Operative/Inv Procedure Report Surgery Date: 07/05/16 Name of Procedure: 1) C4-C5 Removal Of Anterior Cervical Transvertebral Plate-Screw ([employer] [place] [employer]) Instrumentation (Jaclyn/Jose Guadalupek) 2) C6-C7 Removal Of Anterior Cervical Transvertebral Plate-Screw ([employer] [place]) Instrumentation (Jaclyn/Jose Guadalupek) 3) C4-C5 Exploration Of Cervical Spinal Fusion Confirming Solid Arthrodesis Without Need For Revision Procedure (Jaclyn/Jose Guadalupek) 4) C6-C7 Exploration Of Cervical Spinal Fusion Confirming Solid Arthrodesis Without Need For Revision Procedure (Jaclyn/Jose Guadalupek) 5) C5-C6 Anterior Cervical Discectomy, Osteophytectomy, Bilateral Foraminotomies, Neural Element Decompression, Disk Space Preparation And Intervertebral (Interbody) Arthrodesis (Jaclyn-Milagros [facility]) 6) C5-C6 Anterior Cervical Interbody [employer] Lordotic ASR Machined Cortical-Cancellous Composite Allograft Implant Instrumentation ( Jaclyn/Milagros) 7) C5-C6 Anterior Cervical Transvertebral Medtronic [place] Elite Plate-Screw Construct Implant Instrumentation (Jaclyn/Jose Guadalupek) 8) Microsurgical Technique Requiring Use Of Leica Operating Microscope For Discectomy, Osteophytectomy, Foraminotomies And Neural Element Decompression ( Milagros) 9) Electrophysiological neurological monitoring (EMG, SSEP, recurrent laryngeal nerve and MEP monitoring) ([place]/NeuroAlert) [Not separately coded] Pre-Operative Diagnosis: Primary Surgically Treated Diagnoses: 1) 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 2) C5-C6 Mid-Cervical Foraminal Spinal Stenosis 3) C4-C5 And C6-C7 Cervical Spine Long-Standing Postprocedural Arthrodesis Status 4) Retained C4-C5 And C6-C7 Anterior Transvertebral Plate-Screw Instrumentation 5) C5-C6 Degeneration Of Mid-Cervical Intervertebral Disc 6) Severe Intractable Neck Spasm 7) Severe Intractable Neck Pain Unresponsive To Comprehensive Conservative Management 8) C5-C6 Mid-Cervical Spondylosis With Radiculopathy 9) C5-C6 Acquired Degenerative Grade I Static And Dynamic Cervical Spondylolisthesis 10) C5-C6 Moderate Cervical Segmental Translational Instability And Angular Microinstability 11) C5-C6 Single Level Acute Angle And C4-C7 Lower Cervical Regional Mild Kyphosis 12) Cervical Radiculopathy (Bilateral Proximal Radicular Distribution) Post-Operative Diagnosis: Same as preoperative diagnosis list with the addition of: Intraoperative Surgically Treated Diagnoses: 1) C5-C6 Anticipated Mid-Cervical Spinal Segmental Intraoperative And Potential Postoperative Instability Requiring Instrumented Stabilization Intraoperative And Postoperative Diagnoses Pertinent To Postoperative Care: 1) Anticipated Acute Postoperative Neck Region Pain Requiring Postoperative Narcotic Analgesic Pain Medication And Overnight Inpatient Pain Management 2) Anticipated Acute Postoperative Neck Region And Upper Extremity Muscular Spasm Requiring Postoperative Muscle Relaxant Medication 3) Potential For Acute Postoperative Cervical Region Swelling Or Hematoma Requiring Postoperative Drain And Overnight Inpatient Nursing Monitoring 4) C5-C6 Presence of Cervical Spine Interbody Machined Composite Allograft And Anterior Transvertebral Plate-Screw Osseous Stabilization Instrumentation Construct Implants 5) C5-C6 Acute Anterior Cervical Decompression Postprocedural Status 6) C5-C6 New Cervical Spine Early Postprocedural Arthrodesis Status 7) Mechanical Risk Factors (Rostral And Caudal Adjacent Fused Segments) For Impaired Osseous Healing And Pseudoarthrosis Indicating Use Of An External Pulsed Electromagnetic Field Stimulation Device To Optimize Arthrodesis Potential Estimated Blood Loss: less than 50ml Surgeon/Movie Shot Camera Operator: CHRISSY ANAYA MD - Admitting Orthopaedic Co-Surgeon ADOLFO LINARES MD - Consulting Neurological Co-Surgeon Surgical Providers: Regarding Orthopaedic Spine Portion Of Procedure Primarily Dictated Here: Chrissy Anaya M.D. - Orthopaedic Spine Surgeon (Co-Surgeon/Primary Admitting Surgeon) Adolfo Linares M.D. - Neurosurgeon (Co-Surgeon/Movie Shot Camera Operator Surgeon) See Neurosurgical Operative Report Regarding Surgical Provider Designation For Neurosurgical Spine Portion Of Procedure Anesthesia: general endotracheal tube Monitors: Standard general anesthesia and other perioperative monitoring was performed per anesthesia. Standard Intraoperative EMG, SSEP, recurrent laryngeal nerve and MEP electrophysiological monitoring (NeuroAlert) Refer to anesthesia and intraoperative electrophysiological monitoring records for details. IV Fluids: Standard anesthesia fluid management was performed without requirement for additional or emergent fluid resuscitation. Refer to anesthesia records for details. Implants: Implants Removed (And Sent To Pathology For Analysis Per Hospital Protocol): Anterior Transvertebral Cervical Implants Removed: Medtronic Anterior Cervical [place] Elite (AVE) Plate-Screw Construct (Plate And 4 Screws) From C4-C5 Medtronic Anterior Cervical [place] Plate-Screw Construct (Plate And 4 Screws) From C6-C7 Implants Placed: Interbody Implants: [employer] Lordotic ASR Machined Cortical-Cancellous Composite Structural Allograft: 1 x 8 mm Height x 14 mm Width x 11 mm Depth At C5-C6 Anterior Transvertebral Cervical Implants: Medtronic Anterior Cervical [place] Elite (AVE) Plate-Screw Construct: 1 x 32 mm 1-Level, 4-Hole AVE Plate At C5-C6 2 x 14 mm x 4.0 mm Fixed Angle Self-Tapping (FAST) AVE Screws Bilaterally At C6 2 x 14 mm x 4.0 mm Variable Angle Self-Tapping (VAST) AVE Screws Bilaterally At C5 Graft Placed: Structural Cortical-Cancellous Composite Allograft Implant (See Above) Urine Output: Refer to anesthesia records for details. Drains: Small Phoenix-Peters (PABLO) drain placed in the prevertebral space, carried out through the inferolateral superficial subcutaneous wall of the surgical site and connected to small bulb suction. Specimens: Cervical disc material and removed implants were sent to pathology for identification, documentation and analysis per hospital protocol. Complications: None Condition: Initial Preoperative Condition: The patients condition was stable to the operating room without vital sign, hemodynamic, cardiopulmonary or other organ system abnormality and without new neurovascular or musculoskeletal functional deficit compared to normal baseline preoperative orthopaedic spine surgical office admission history and physical and neurosurgical consultation evaluations. The patient was cleared preoperatively as optimized for surgery by his primary care physician and all requested consulting specialty services prior to admission. There were no significant adverse changes evident in the patients condition between the clearance admission history & physical evaluations and the immediate preoperative assessment. Intraoperative Condition: The patient was stable throughout the procedure without vital sign, cardiopulmonary or other monitoring changes, lability, instability or abnormality. The patient's initial baseline neurophysiological monitoring signals (shortly after general anesthetic induction and prior to incision) were diffusely slightly diminished in both lower extremities (although within the low -normal range) while fairly normal in both upper extremities. These low-normal signals improved even before decompression and were felt to be consistent with anesthetic effect. Following this initial period of low signal amplitude, the signals for the remainder of the procedure were normal and equal between the upper and lower extremities. Otherwise, no significant or persistent intraoperative neurophysiological monitoring abnormalities or changes were reported. Final Postoperative Condition: The patient was extubated and stable to the recovery room with optimally-fitted Viola cervical collar in place and with no new deficit or change compared to normal and stable baseline preoperative neurological and musculoskeletal assessment based on limited evaluation during initial recovery from anesthesia. The patient demonstrated grossly normal spontaneous motion initially as well as later normal motion and function to command in both upper and distal lower extremities once fully awake upon early recovery from anesthesia. Although no objective change could be detected, with good strength documented both pre- and post-operatively, the patient reported subjective improvement in his shoulder pain and some improvement in his subjective bilateral upper extremity numbness and dyscoordination compared to his preoperative status during initial evaluation in the recovery room. He also reported no prodrome of cervical spasm which he usually experiences regularly especially with neck extension which was gently trialed in the recovery room without spasm generation. Although this could certainly be a post-anesthetic or analgesic neurologic or muscle relaxant effect, it is encouraging given the frequency of his preoperative spasms and their absence for quite some time in the recovery room postoperatively. There was no significant swelling evident in either calf and his tissues were soft to palpation with no tenderness on gentle compression. There was no pain with active and passive distal extremity motion and there was no postoperative suggestion of the development of an urgent or emergent condition related to the deep soft tissues or vascular system. Operative Indication: Evan Buchanan is a 60 year old right-handed white male who presents today for C4-C5 and C6-C7 removal of hardware and exploration of fusion followed by C5-C6 anterior cervical discectomy and instrumented fusion to address severe axial and bilateral proximal radiating upper shoulder pain along with progressive subjective bilateral sensory, motor and coordination upper extremity functional deficits secondary to adjacent segment degenerative changes between two prior fusions associated with uncovertebral spondylosis and bilateral foraminal stenosis with exiting neural element compression. His previous fusions appear to have healed solidly and this will be confirmed by intraoperative exploration after plate removal at both levels. Assuming that solid fusions are confirmed there will be no need for further intervention at these levels. His symptoms and condition have steadily progressed consistent with the serial clinical assessments and radiologic findings of significant adjacent segment degenerative disease and foraminal narrowing. The patient's preoperative cervical spine radiologic workup (including static and dynamic radiographs, MRI and CT scans) showed the above noted disk space and facet complex severe degenerative and moderate spondylotic reactive osseous signal change and foraminal encroachment consistent with the patient's current clinical condition. There is also mild degenerative translational instability at the C5-C6 level which is likely exacerbated by the angular adjacent segment forces generated by the fusion segments above and below. Although he also has lesser but significant degenerative changes at the C3-C4 and C7-T1 segments, the majority of his symptoms and signs were felt to be consistent with the C5-C6 level findings. These radiologic findings are consistent with his symptoms, findings and functional deficits as well as his progression and worsening over time. One of his worst symptoms is severe spasm with cervical extension and this could certainly be a combination of referred and radicular pain as well as abnormal motor firing due to neural impingement consistent with the above findings. His preoperative laboratory studies were unremarkable. The patient has sufficiently severe and progressively worsening clinical findings (symptoms listed above along with severe spasm and subtle physical examination findings consistent with his subjective deficits and functional limitations) related to this condition, has failed a comprehensive conservative management program despite excellent compliance to his maximal capacity and tolerance, has close correlation between clinical presentation and preoperative studies, is medically optimized for surgical intervention, understands and accepts the limitations, uncertainties and risk of surgery, appears to have appropriate goals for surgical outcome, and is more likely to achieve those goals with the planned surgical procedure than with other options for treatment thus making him a reasonable candidate for surgical intervention. He also has a lumbar degenerative disk condition with neural impingement and severe muscular spasm similar to that described in his cervical region which is certainly accounting for his lumbar axial and radicular symptoms but seems to be independent from and only minimally interacting with his cervical condition and symptoms. His lumbar condition has also failed conservative management and will require surgical intervention which is planned to be scheduled once he has recovered sufficiently from his cervical spinal surgery in approximately 3-4 months. The order of cervical and lumbar intervention was determined based on severity of symptoms, degree of functional limitation associated with each area and recommendations regarding cervical before lumbar surgery when symptoms were fairly close. The patient has a positive past medical history of hypercholesterolemia and benign prostatic hypertrophy which is detailed in the clearance evaluation reports (refer to those documents for additional information). He reports no other significant past medical history pertinent to his current orthopaedic spine surgical assessment, recommendations and perioperative management. He has a positive past surgical history of right total hip arthroplasty, L4-L5 multicolumn instrumented fusion (2006), removal of L4-L5 posterior pedicle screw hardware (2007), C6-C7 ACDF (08/10/2001, Marita/Guru, allograft/[place] plate-screw construct) and C4-C5 ACDF (02/05/2014, Marita/Ye, allograft /[employer] [employer] Elite plate-screw construct). He denies any complications, adverse events or outcomes associated with any of the above procedures and reports good result from his hip replacement but only partial and temporary improvement from his lumbar and cervical procedures because of steady, progressive worsening after each one likely related to adjacent segment degenerative disease. His cervical, lumbar and inguinal spasms have also worsened again after each of his spinal procedures which is likely related to the same degenerative etiology. His current and active medications include Atorvastatin (20 mg PO QD), Diazepam (5 mg PO qhs) and Tamsulosin (0.4 mg PO qd) . He reports no adverse effects from any of these medications and reports no recent change in medications or doses. He reports no history of anaphylactic, anaphylactoid, allergic or non-allergic reactions or sensitivities to medications, foods or skin contact environmental allergens. He is a non-smoker and denies significant alcohol intake or other social risk factors. Despite the severity of his symptoms and spasms he has been able to remain at work although there are times when his spasms interfere with his concentration and productivity. The above medical, surgical, medication, allergy and other clinical information was reviewed throughout the hospital admission and preoperative confirmation process but did not alter surgical recommendations, treatment plans or perioperative management in this case. Treatment options were discussed in detail directly with the patient. After careful and appropriate consideration he elected to proceed with the planned operative procedure of C4-C5 and C6-C7 removal of hardware and exploration of fusion followed by C5-C6 anterior cervical discectomy and instrumented fusion. He also consented to any additional indicated procedure based on intraoperative findings including possible augmentation of previous fusion in the unlikely event that pseudoarthrosis is documented. Arrangements for hospital admission, surgery and perioperative care were made through Dr. Anaya's office for combined Orthopaedic and Neurosurgery co-surgical treatment. In addition to the general risks of all surgical procedures (bleeding, infection, anesthesia and other general risks), specific risks of the planned procedure were reviewed with the patient including but not limited to tissue injury or exacerbation of prior injury (spinal cord, nerve root, peripheral nerve, meningeal, blood vessel, bone, disk, joint, muscle, tendon, ligament, esophagus, trachea or other tissue injury), fracture of spinal elements, failure of spinal implants (fracture, loosening, or subsidence), failure of fusion, worsening of spinal alignment, abnormal (hypertrophic, heterotopic or ectopic) bone or scar formation, new or persistent-exacerbated symptoms (pain, dysesthesias, paresthesias, headaches, dizziness), development of new or worsening of preexisting medical conditions or complications (arthritis, blood clots, cardiac events, stroke, acute organ failure of any organ, other medical conditions potentially worsened by trauma, surgery, anesthesia or immobility), inability to complete the procedure as planned, and need for reoperation at the current or a future related site (including possible surgeries at other already degenerative levels and/or posterior stabilization at the same or adjacent levels). Potential for partial or complete, global or regional loss of motor, sensory, coordination, swallowing, voice, facial motion, facial expression, ocular, pupillary, breathing, bladder, bowel, sexual, balance or ambulatory function was reviewed. Remaining potential complications were reviewed in inclusive risk categories ranging through all severity levels from temporary changes to catastrophic outcomes such as complete paralysis, organ failure, disfigurement or . The patient understood and accepted that his risk was likely to be somewhat above average even for this already complex and high risk revision procedure ( compared to his age, clinical and function matched cohort) due to his duration and severity of pre-operative symptoms, severe and intermittently debilitating spasm of unclear etiology, multiple levels of degenerative disease, previous surgery in the same cervical region, involvement of non-adjacent other cervical motion segments not addressed by the currently planned procedure, simultaneous involvement of the lumbar region requiring separate intervention and possible as yet undefined underlying spondyloarthropathy or other rheumatological condition. Signed operative consent was obtained directly from the patient with good understanding of all reasonable alternatives, indications, goals, expectations, limitations, risks and benefits of the planned procedure. The patient consented to all phases of the procedure being performed by Dr. Anaya and Dr. Linares as co-surgeons with the assistance of all designated hospital and outpatient practice team members. The patient was cleared preoperatively as optimized for surgery by his primary care physician, all requested consulting medical subspecialists and primary surgeons office evaluations prior to admission. Preoperative arrangements were made to follow all clearance evaluation recommendations. In the preoperative evaluation area, the patient confirmed his oral intake status as NPO since midnight prior to surgery. Operative/Procedure Note Note: Preoperative Holding Area Assessment/Preparation: The patient was evaluated in the preoperative holding area prior to surgery and no clinical changes or contraindications to surgical intervention were documented compared to the preoperative office and clearance evaluations. Active, patient controlled Lhermitte's and Spurling's maneuvers were negative and there were no abnormal or hyperactive reflexes to suggest acute, resting or positional neural element compression that might be associated with increased neurological intraoperative risk based on preoperative assessment. He did however have severe and spasmodic axial and proximal radiating upper shoulder pain with even intermediate arc cervical extension with or without rotation. This spasmodic reaction was identical to his baseline symptoms and appears more axial in origin than radicular without any suggestion of myelopathic component. This was therefore not felt to represent a positive Lhermitte's or Spurling's test. The surgical plan and site were confirmed with the patient and preoperative paperwork was finalized. The region of the intended surgical site was cleansed, prepped and marked per protocol. The surgeons, anesthesia care team members and operating room staff confirmed the patient identity, surgical procedure and operative site as well as other clinical details with the patient in an initial documented preoperative confirmation (awake time out) prior to the administration of sedation or anesthesia. Surgical Procedure: Dr. Anaya and Dr. Linares were both present for and participated equally as co-surgeons in all clinically significant phases of the surgical procedure documented below as well as for all critical intraoperative and perioperative decisions and interventions. The set-up, positioning, exploration of previous fusion level, arthrodesis, instrumentation and closure portions of the procedure are described in greatest detail in this operative report. Refer to Dr. Linares s Neurosurgical operative record for additional details particularly regarding the electrophysiological monitoring, application of cervical traction, exposure, discectomies, osteophytectomies, neural element decompression and microsurgical (use of the operating microscope) portions of the procedure. The patient's multiple previous surgeries increased the difficulty and risk of this operation but did not specifically require additional procedural services in this case. Set-Up/Positioning/Exposure - The patient was brought to the operating room in stable condition and underwent uncomplicated induction of general anesthesia, intubation, and placement of all appropriate monitors, lines and catheters without difficulty. Administration of 2 grams of IV Ancef based on patient body mass was given for surgical prophylaxis and was completed at least 30 and less than 60 minutes prior to making an incision. The patient was positioned supine on the operating table in standard fashion for an anterior cervical discectomy and instrumented fusion taking care to protect and stabilize the spine during transfer, avoid positions of nerve stretch, pad all pressure points, and support the head and neck in a slightly extended position using a rolled sheet under the scapulae and a gel donut head rest under the occiput. In this case, particular care was taken to avoid extension in the range which caused the patient's severe preoperative spasmodic symptoms. Harness cervical traction apparatus was placed in standard fashion with 10 pounds of stabilizing weight applied taking care to avoid any force transmission to the endotracheal tube. Electrophysiological monitoring electrodes were placed per standard monitoring protocol. Wrist cuffs were placed with sufficient circumferential approximation so that traction could be applied during the case if necessary for radiologic visualization, but loose enough (one finger breadth of space beneath the cuff) that there was no pressure to the wrists when traction was not being applied. Care was taken to insure that all IV sites and monitoring leads were protected in the unlikely event that wrist traction was required during the procedure. The arms were well padded and tucked at the patient's sides again taking care to protect all IV sites and monitoring leads. Baseline preoperative electrophysiological monitoring readings were obtained and no gross abnormalities were noted except for diffusely increased latency in the bilateral lower extremity signals. This was followed closely, improved prior to decompression and was ultimately felt to be most consistent with an anesthetic effect. The lower extremity signals normalized fairly quickly during the initial phase of the procedure to equal the upper extremity signals and no further changes or inequalities were noted. The surgeons, anesthesia care team, and operating room staff again documented the patient identity, surgical procedure, and operative site as well as other clinical details in a final documented confirmation (final time out) prior to beginning the procedure. A cross-table lateral fluoroscopic image was obtained with a skin marker in place to determine the optimal level for incision, to document optimized intraoperative cervical alignment, and to confirm acceptable radiologic visualization of the intended operative levels with sufficient detail down to the lower cervical levels throughout the procedure. The approach, exposure, hemostasis, retractor placement, and fluoroscopic identification of intended operative levels are dictated in greatest detail by Dr. Linares in his Neurosurgery operative report. The hardware removal and exploration of previous fusions at the C4-C5 and C6-C7 levels is detailed in this operative report. The discectomy, osteophytectomy, central and foraminal decompression portions of the procedure are then also described in greatest detail in the Neurosurgery operative report. Refer to that document for additional details. In brief summary, after sterile prep and drape performed using standard technique, a right anterior cervical incision was mapped, infiltrated with local anesthetic, and made in a transverse curvilinear fashion within a major neck skin crease overlying the intended operative levels using a #15 scalpel blade. The previous incisions were well healed and barely detectable. The new incision was made in what appeared to be a previous scar and extended from just lateral of midline to just medial of the medial palpated edge of the sternocleidomastoid muscle at that level. Hemostasis was achieved using Bovie and Bipolar electrocautery beginning with the incision and continuing throughout the procedure with settings appropriate to each progressive level. The dissection was carried through the subcutaneous layer in line with the incision, both the upper and lower skin flaps were mobilized so as to minimize traction injury, and the platysma was then bluntly dissected in line with its fibers and divided longitudinally to expose the underlying strap muscles. The fibrotic tissue associated with the patients prior surgery made dissection somewhat difficult as had been discussed with him preoperatively, but did not significantly impede safe and successful dissection and exposure within the previously dissected surgical site. Soft tissue dissection continued down to the prevertebral space in the plane between the esophagus and trachea medially and the palpated pulse of the vertebral artery laterally taking care to gently manually retract and protect these structures throughout the dissection using hand-held Cloward retractors. With the anterior longitudinal ligament identified at the disk space level and the lower margin of the upper plate partially dissected just above the exposed disk space for additional initial localization, a spinal needle was bent in a closely spaced double right-angle configuration to prevent excessive penetration , gently placed into the disk and confirmed to be at the intended operative level (C5-C6) on cross-table lateral fluoroscopic image. No additional upper extremity traction was required for optimal fluoroscopic visualization down to the lower cervical levels and the critical cervical region was optimally visualized throughout the procedure without the need for additional cranial or extremity traction. Once the appropriate levels were fluoroscopically confirmed , dissection was optimized to fully expose the intended C5-C6 disc space level as well as the adjacent medial margins of the longus colli muscles which were elevated using Bipolar and Bovie electrocautery to optimize stable placement of the transverse serrated-edge (toothed) Trim-line retractor blades and horizontal self-retaining retractor arm. Prior to retractor placement, the dissection was carried both caudal and rostral to expose the upper and lower plates through their full height and width to facilitate hardware removal. This involved removing considerable osseous overgrowth in both the central and peripheral regions of each plate. Additional very tedious dissection was required to remove osseous overgrowth from the screw heads and locking mechanism particularly from the lower [place] plate. This additional dissection was considerably more difficult than would be typical for hardware removal of this type but not so much that separate or modified procedural services were required to address distinct pathology or minimize significant additional associated risk. The edges of the longus colli musculature were elevated throughout the height of the dissection for optimal exposure and retractor placement. Use of this submuscular dissection technique insured full horizontal exposure while minimizing pressure on the more superficial medial and lateral structures so as to minimize risk of potential adverse effects associated with retraction. The longitudinal smooth-edge Trim-line retractor blades and vertical arm were then placed using standard technique and configuration so as to optimize exposure while taking care to protect surrounding structures. Hardware Removal/Exploration Of Fusion - After confirming optimized exposure and visualization, the anterior cervical plate-screw construct at the C4-C5 segment was removed so as to fully expose and allow evaluation of the underlying fusion level. Initially, all soft tissue and osseous overgrowth was removed from the plate, locking mechanism and screw heads. Dissection was then carried down both sides of the mid body of the plate to the disc space level with no sign of pseudoarthrotic soft tissue extending into the disc space. Once fully exposed, the plate and screws were carefully removed using standard technique based on the design of each instrumentation system. All removed hardware was sent to pathology for documentation per hospital protocol. Hemostasis was achieved with Bovie electrocautery and bone wax where necessary particularly in the previous screw holes. With the hardware removed, the C4-C5 arthrodesis level was debrided of all anterior fibrous tissue at the disc space level using the Bovie. Visual inspection and instrument palpation confirmed confluent bone across the C4-C5 level with solid arthrodesis and no suggestion of pseudoarthrosis. An identical dissection was then extended to the C6-C7 level where soft tissue and overlying bone was removed from the plate and screw construct. At this level, small osteotomes were required to gently remove overlying bone without deforming the underlying hardware. Because of its design, the configuration of the locking mechanism and the thin flat screw heads with shallow cruciate grooves for screwdriver fixation, the inferior [place] construct was much more difficult to remove than the upper [place] construct and took considerably more time. Ultimately, all hardware was removed using standard techniques and without excessive manipulation. The underlying arthrodesis at C6-C7 was fully exposed and explored by visual inspection and instrument palpation. As was the case at C4-C5, the C6-C7 arthrodesis was found to be solid without suggestion of pseudoarthrosis. In fact, both levels were definitively fused by standard visual and palpation assessment such that mechanical testing was not necessary and was not performed. With the hardware removal and arthrodesis exploration completed, final hemostasis was achieved using bone wax for all screw holes and attention was turned to the discectomy and fusion at the intervening C5-C6 level. The Leica operating microscope was sterilely draped and brought in for the microsurgical decompressive portion of the procedure. Discectomy/Neural Decompression - After confirming optimized exposure and visualization, a rectangular anterior annulectomy was performed at C5-C6 using a #11 scalpel blade. The disc space was gently distracted using a long-armed cervical intervertebral precast worker and a majority of the discectomy was performed with straight and curved curettes alternating with straight and angled pituitary rongeurs down to the level of the uncovertebral joints. Degenerative disk and fibrotic material was found extending within a disk-osteophyte complex into the foraminal zones and even extending beyond the spondylotic projections thus additionally contributing to the exiting neural element encroachment bilaterally. Most of the direct neural compression was spondylotic although the additional lesser degenerative herniated soft tissue component certainly contributed. This was consistent with the patients history, adjacent segment degeneration, preoperative clinical presentation and MRI findings. Compressive disk fragments were gently removed with pituitary rongeurs. All resected disc material was sent to pathology for analysis per hospital protocol. Using curved curettes and Kerrison rongeurs, the posterior longitudinal ligament and the small impinging central and posterobilateral endplate osteophytes were resected resulting in full decompression of the central canal. Bilateral foraminotomies were then performed with resection of the moderate-sized compressive posterobilateral uncovertebral osteophytes using Kerrison rongeurs to fully decompress all exiting neural elements at the operative level. Moderate and approximately equal degree of irritability and hyperactive neural activity associated with muscle firing was noted during both foraminotomies (somewhat more on the left than on the right) from even the very gentle mechanical stimulus required for uncovertebral osteophytectomy, foraminotomy and palpation to confirm foraminal patency. These intraoperative findings were consistent with the patients preoperative clinical and MRI findings. This nerve root irritability almost completely resolved after final decompression. During these periods of hyperactive neuromuscular firing and subsequent normalization there were no changes in intraoperative electrophysiological monitoring signals. Hemostasis of osseous and epidural bleeding was achieved using Thrombin soaked Gelfoam and paddies gently applied and removed by irrigation with all bleeding controlled. Final complete central and foraminal decompression was confirmed by gentle passage of a blunt nerve hook behind both the upper and lower vertebral bodies and out each foramen without resistance and without hyperactive neural responses. The microscope was removed and attention was turned to the fusion portion of the procedure. Arthrodesis/Instrumentation - The fusion portion of the procedure, including instrumentation and grafting, is dictated in greatest detail in this operative report. A Le[place]ell rongeur was used to resect the anterior osteophytes at the margins of the disc space until the anterior surface across the disc space was flush and optimized for placement of an anterior transvertebral plate. The [email or web address] drill with a 5 mm cutting sindy was used to remove anterior osteophytes and cartilaginous endplate as well as to partially decorticate the osseous endplates in a tapered fashion from slightly more narrow anteriorly to slightly wider posteriorly leaving both anterior and posterior, superior and inferior vertebral wall projections of 1-2 mm extending into the interspace so as to prevent implant migration. This contouring resulted in slightly more anterior than posterior distraction and disc space height adventist with partial adventist of lordosis when the lordotic composite structural allograft implant was later impacted into the tapered interspace. This also insured optimal interference fit of the intervertebral implant and lateral ligamentous tension of the interspace for optimal fusion. Just prior to interbody implant placement, the central portion of each endplate was breached to bleeding cancellous bone with the drill and curved curette at the interface with the central cancellous portion of the composite allograft implant to promote optimal ingrowth. The peripheral zones of both osseous endplates surrounding this central breach were preserved at the perimeter for optimal support of the cortical portion of the composite allograft so as to minimize the risk of subsidence. Hemostasis was confirmed and the interspace and surgical site were thoroughly irrigated prior to placement of the structural composite allograft implant. All stabilizing and traction weights were removed from the halter harness. With no Halter traction or interspace distraction applied to the operative level, the C5-C6 disk space was templated with optimal fit and soft tissue tension documented using a standard trial of 8 mm height, 11 mm depth and 14 mm width. The 8 mm x 11 mm x 14 mm [employer] Lordotic ASR Machined Cortical-Cancellous Composite Allograft implant was reconstituted in saline and then contoured at its front corners as needed for optimal impaction. The composite allograft implant was then gently impacted into the interspace until it was recessed behind the anterior vertebral wall superior and inferior ridges which had been fashioned to prevent migration. Once the implant was in optimal position, excellent interference fit was documented with no motion seen when gentle anteriorly directed pressure was applied to the posterior aspect of the graft on each side using a nerve hook. This maneuver also allowed palpation behind the graft to insure that there was sufficient space between the graft and the thecal sac with no impingement. Once the interbody structural grafting was completed, hemostasis was achieved using small pieces of Thrombin soaked Gelfoam as well as FloSeal placed adjacent to the interbody implants where necessary. Attention was then turned to the anterior plate and screw construct placement and stabilization. Final contouring of the anterior vertebral body forrest was performed using the [employer] drill and cutting sindy until an appropriately sized plate could rest flush on all anterior vertebral body surfaces to provide optimal fixation. A 32 mm [employer] [place] Vision Elite 4-hole (1 fusion level) plate was chosen such that the lower screw holes of the plate were positioned over the superior osseous screw holes of the previous lower plate. Use of these previous screw holes was felt to be appropriate in this case given the excellent bone quality in this patient and the fact that all of the previously removed screws from the two prior constructs had demonstrated very good fixation with high explantation torque. Thus, in this case, using the prior lower screw holes was felt to yield optimal fixation. In order to gain additional lordotic support for this collapsed segment the plate length was chosen to extend above the previous lower screw holes of the upper plate such that new screw holes were drilled for optimal purchase and additional plate length. This plate size and position resulted in optimal fixation while minimizing any risk of plate extension too close to the upper or lower adjacent unfused disk levels. The plate was contoured into optimal lordosis prior to implantation. Ultimately, the endplate and plate contouring contributed to noticeable partial adventist of cervical lordosis and correction of slight translational instability through the fused segments from a neutral and slightly listhetic preoperative alignment. However, given that the patient's preoperative loss of lordosis and translational instability was not felt to constitute a clinically significant deformity, there was no formal corrective procedure required for improved outcome in this case and so the achieved correction was considered an included portion of the arthrodesis not requiring a distinct and separately designated or coded deformity corrective procedure. Screws were placed using standard technique with trajectories which were divergent in the sagittal plane and convergent in the axial plane for optimal purchase and load sharing with the interbody graft. Fixed angle 14 mm x 4.0 mm screws were placed at C6 bilaterally and variable angle 14 mm x 4.0 mm screws were placed at C5 bilaterally to promote load sharing, force transmission and compression across the anterior column as well as the interbody composite allograft. All screws were found to have optimal insertional and final torque during placement as well as good fixation and final seating in the plate. The interbody implant as well as the anterior plate and screw construct were confirmed to be in good position on final intraoperative cross-table lateral fluoroscopic images which were uploaded to the [facility] PACS system. The final plate-screw locking mechanism was set over the screw heads at each level with good coverage so as to minimize the risk of screw loosening or protrusion. Continuous electrophysiological monitoring throughout the procedure showed no prolonged or persistent adverse changes at any point during the decompression, instrumentation, or at any other time during the case. Closure/Recovery - The surgical site was thoroughly irrigated and hemostasis was carefully achieved prior to closure. FloSeal (5 cc) was placed in the prevertebral space and lateral margins of the operated disc space around the implants where helpful for osseous and soft tissue hemostasis. Although the surgical field was found to be dry at the end of the procedure, because of the extensive nature of the procedure with explantation of multiple plates and osseous screws, a small PABLO drain was placed and carried out through the inferolateral aspect of the surgical site using a trochar. Initial counts were correct prior to closure. The deep soft tissue layer was loosely reapproximated in a [id number]-dsha closure using #3-0 undyed Vicryl interrupted, simple suture technique. The platysma [id number] closure was also performed with #3-0 undyed Vicryl interrupted, simple suture technique. The superficial subcutaneous layer was closed with #3- 0 undyed Vicryl inverted, interrupted, simple sutures. The skin was closed using #4-0 undyed running subcuticular Monocryl suture followed by Steri-Strips applied with Mastisol. A standard, sterile small island dressing was placed with good coverage. The PABLO drain was connected to a small bulb suction which was primed but showed no appreciable initial output confirming the previous observation of a dry surgical bed prior to closure. All counts were correct prior to removing the drapes. The Halter harness was removed and a buttressed hard foam Viola cervical collar was placed and fitted optimally prior to awakening the patient. The patient was extubated on the operating table without difficulty and then transferred to the hospital bed in the supine position taking care to stabilize the head and neck during transfer. Recovery Room Assessment: The patient was taken to the recovery room in stable condition where gross neurological examination showed normal function with no deficits or worsening compared to his pre-operative assessments on initial recovery from anesthesia. The patient will follow the usual postoperative protocol for anterior cervical multilevel, non-adjacent hardware removal and exploration of fusion followed by intervening level discectomy, osteophytectomy and foraminal neural element decompression with anterior interbody composite allograft implant fusion stabilized by anterior transvertebral instrumentation. This postoperative care plan will include standard overnight nursing care and pain control, early hospital postoperative extremity and ambulatory mobilization, collar use when out of bed and home discharge planning for the morning after surgery with instructions to minimize head and neck motion initially so as to optimize fusion healing. Outpatient rehabilitation program will be arranged through the office to begin approximately 4 weeks after surgery assuming standard and uncomplicated postoperative course and following clearance at initial postoperative follow-up assessment. Given the nature of his cumulative cervical spinal procedure involving removal of hardware at two non-adjacent levels and fusion of the intervening level, the use of composite allograft interbody implant, as well as his stated desire to return to work as soon as possible, a spinal fusion osteogenesis stimulator is indicated and will be ordered, applied and followed through the office. Findings: 1) C4-C5 and C6-C7 anterior transvertebral hardware was removed without complication. Removal of [place] hardware at C6-C7 was significantly more difficult than [place] hardware removal at C4-C5 or other standard cervical hardware removals due to specifics of instrumentation construct design as well as the extent and hardware penetration of overgrown bone but did not require separate procedural service in this case. 2) C4-C5 and C6-C7 arthrodeses were found to be solid and mature based on intraoperative visual and palpation testing evaluation criteria. 3) Moderately compressive degenerative disk herniation fragments, associated with buckling of and unidirectional neural encroachment through the posterior longitudinal ligament were identified and resected bilaterally at the C5-C6 level. 4) Compressive osteophytes, especially at the bilateral uncovertebral joints , were identified and completely resected at the C5-C6 level. 5) Full central canal, lateral recess and bilateral foraminal decompression was documented by intraoperative palpation at the operative level. Foraminal stenosis associated with uncovertebral osteophyte projections noted on preoperative studies and confirmed on initial foraminal assessment after discectomy was fully patent after osteophytectomy and foraminotomy. 6) Optimal interference fit of the interbody graft and fixation of the anterior transvertebral plate-screw construct at the C5-C6 level was achieved and documented by intraoperative palpation. Optimal position of graft and implants was confirmed on final intraoperative fluoroscopic images. 7) Significant partial adventist of lordotic segmental and regional alignment was confirmed by intraoperative radiologic assessment. 8) Nerve root irritability on the left with even very gentle manipulation required for decompression in the foraminal zone was noted during foraminotomy consistent with the patient's preoperative reported symptoms, subjective reports , objective signs and radiologic study findings. This hyperactive neuromotor firing almost completely resolved shortly after foraminotomy decompression with no further irritability noted during the remainder of the procedure. No prolonged or significant neurophysiological monitoring abnormalities or changes were noted during the above periods of hyperactive neuromotor firing or at any other time during the procedure. Discharge Disposition: PACU Additional Comments: The patient will be admitted to the hospital on the Orthopaedic Surgery (Chrissy Anaya M.D.) service. Once cleared by anesthesia and recovery room assessments he can be transferred to the surgical floor where standard postoperative spine service, nursing, physical therapy, discharge planning and any other indicated hospital service care protocols for multilevel anterior cervical procedure (hardware removal, exploration of previous fusion and new discectomy with instrumented fusion) patients will be followed. These standard postoperative protocols will include: Continue perioperative antibiotics for a total of 24 hours (3 total doses of IV Ancef 2 grams q8 hours including the initial intraoperative dose). Removal of Johnson catheter in recovery room. Removal of PABLO drain in the morning on POD #1. The patient will use his Viola cervical collar most of the time when he is out of bed but may remove it to take breaks and for hygiene. Even when the collar is in place, but particularly when the collar is off, the patient is cautioned to minimize neck motion (especially given the potential increased displacement forces generated by the adjacent fused segments both above and below his operated level). This level of collar use and motion limitation will continue until his first postoperative visit at which time future need for the collar will be assessed. It is not necessary for him to use the collar constantly nor when he is sleeping although he may use it at night for comfort if he so chooses. A more comfortable Keno-J cervical collar will be dispensed and fitted through the office during the first postoperative week and the Viola collar can then be used for showering if necessary. The patient will be instructed on and follow standard protocols regarding home anterior cervical surgical site care, showering and daily dressing changes following shower starting on postoperative day #2. Physical therapy will be consulted for evaluation on the afternoon of surgery or the first postoperative morning for education regarding collar application, removal and exchange (particularly between regular and shower collars), extremity range of motion and strengthening exercises, mobilization from and to bed, chair and bathroom as well as stair climbing and descending as needed in preparation for home discharge and independent home function. The patient is encouraged to minimize neck motion, lifting, carrying, pushing, pulling and overhead reaching particularly during the first 6 weeks postoperatively. Advance normal diet as tolerated and without any required restrictions. Balanced diet is recommended to support optimal surgical site and osseous healing. If swallowing difficulty develops then reduce diet to mechanical soft or liquid diet and contact surgeon. The patient is at low perioperative thromboembolic risk and does not require any pharmacologic prophylactic treatment in this regard as long as he mobilizes early and frequently with lower extremity motion exercises and ambulation. Sequential compression devices will be used throughout the patient's hospitalization. Contact Dr. Anaya in the unlikely event that the patient is unable to mobilize adequately (at least to the hallway) with physical therapy and/or nursing by the first postoperative morning at which point pharmacological prophylaxis may need to be considered. Assuming standard postoperative hospital course: Discharge planning for home discharge can begin on the afternoon of surgery. The patient will be discharged with the following prescriptions: Narcotic Pain Medication: Oxycodone/Acetaminophen 5/325 mg 1-2 PO q4-6 hours prn pain (#40, No Refill) Benzodiazepine Muscle Relaxant Medication: Diazepam 5 mg 1-2 PO q8 hours prn spasm (#30, No Refill) The patient was instructed not to drive for at least the first 2 weeks postoperatively and given recommendations regarding short distance driving thereafter only if he no longer requires a collar, has good pain control without the need for narcotic or other sedating medication and has met all DMV criteria for safely operating his specific motor vehicle. Initial postoperative follow-up evaluation with Dr. Anaya was scheduled for the patient prior to surgery and should be approximately 10-14 days postoperatively at which time his surgical site will be checked and his early response to surgery assessed. Outpatient physical therapy as well as other plans and arrangements will be made at that time along with a schedule for graded return to more normal home activities. The patient will not be ready to consider even light duty work return until at least 3-6 weeks postoperatively and this will obviously depend on standard office assessments. Given that lumbar surgery is also being scheduled for the patient, depending on his recovery from cervical surgery and his decisions regarding timing of lumbar surgery, it is possible that he would not return to work until after he has adequately recovered from both this cervical spine and his planned lumbar spine fusion procedures which, in total, may be 4-6 months from now. Anterior- posterior and lateral cervical spine radiographs will be performed (without the collar in place) at the 6 week follow-up evaluation unless indicated earlier. The patient already has Dr. Weaver office contact information and will again be given the office phone number along with home care instructions prior to discharge. He is encouraged to call for any questions or concerns that require attention before his follow-up visit and particularly for any significant or prolonged fever or incisional drainage, erythema or swelling as well as for any pronounced breathing, swallowing or vocalization changes. CC: JACLYN VALIENTE,CHRISSY Nelson; MILAGROS VALIENTE,ADOLFO Son
== END 2016-07-06 15:10 | DRG 473 ==
LOC: ENRESERVTM → ENRESERVDT → SDA 01:16 → 2NB 01:16 → SDA 07:00 → 2NB 17:15
PROVIDERS: Internal Medicine Hematology & Oncology; Physician Assistant Surgical; ADMIT Orthopaedic Surgery Orthopaedic Surgery of the Spine
PROC: 0RG10K0 Fusion of Cervical Vertebral Joint with Nonautologous Tissue Substitute, Anterior Approach, Anterior Column, Open Approach (ICD-10-PCS; principal; 2016-07-05)
PROC: 0RB30ZZ Excision of Cervical Vertebral Disc, Open Approach (ICD-10-PCS; 2016-07-05)
PROC: 0RP104Z Removal of Internal Fixation Device from Cervical Vertebral Joint, Open Approach (ICD-10-PCS; 2016-07-05)
DX: M50.222 Other cervical disc displacement at C5-C6 level (principal); N40.0 Benign prostatic hyperplasia without lower urinary tract symptoms; M54.12 Radiculopathy, cervical region; E78.00 Pure hypercholesterolemia, unspecified; M25.78 Osteophyte, vertebrae
CPT/HCPCS: 2NBSP; 36415; 72040; 82436; 87086; 88304; 93005; 93010; C1713; J0131; J0690; J1170; J2405; J7042